=== PATIENT | female | born 1960 | race Caucasian/White ===

== ENCOUNTER 2020-08-02 14:45 | Emergency (ER) | payer BC ==
[2020-08-02] MEDS ORDERED: Sodium Chloride 0.9% 500 ML IV ONE (14:59)
[2020-08-02] MEDS ORDERED: Sodium Chloride 0.9% 1,000 ML IV SCH (15:00)
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
[2020-08-02] MEDS ORDERED: Iopamidol 612 MG/ML 50 ML SDV IVPUSH ONE (15:35)
[2020-08-02] MEDS ORDERED: Iopamidol 612 MG/ML 100 ML Bottle IVPUSH ONE (15:35)
[2020-08-02] MEDS ORDERED: ceFAZolin 1 GM in Premix Bag 1 BAG IV ONE (19:03)
[2020-08-02] MEDS ORDERED: Diphtheria,Pertussis(Acell),Tetanus Vaccine 0.5 ML Syringe IM ONE (19:40)
--- NOTE | 2020-08-03 08:14 | CR ---
Right forearm: 2 views of the right forearm were obtained. Comparison: No previous study. Fracture is identified within the mid one third diaphysis of the right ulna. Slight displacement is seen. No additional fracture or other bony abnormality is appreciated. Impression: 1. Mildly displaced right ulnar diaphyseal fracture. Diagnostic code #3
--- NOTE | 2020-08-03 08:14 | CR ---
Right hand: 4 views of the right hand were obtained. Comparison: No previous study. Slight degenerative change is scattered within the DIP joints. Calcifications are noted off the CMC joint of the thumb as well as DIP joint of the second finger. These appear to be old. There is fairly severe degenerative change being seen within the CMC joint of the thumb. Partially visualized fracture within the ulnar diaphysis is noted. Impression: 1. Degenerative change as noted above. 2. Mid ulnar diaphyseal fracture is partially visualized. 3. Nothing acute is otherwise appreciated on right hand exam. Diagnostic code #3
--- NOTE | 2020-08-03 08:15 | CT ---
CT cervical spine Technique: Multiple axial sections were obtained from above C1 inferiorly to the top of T3. Reconstructed coronal and sagittal images were obtained. Comparison: Prior MRI cervical spine study of 04/22/16. Findings: Slight kyphosis is seen of the cervical spine. Minimal disc space narrowing is noted at C5-6 and C6-7. Anterior osteophytes are noted at these two levels. Slight posterior osteophytes are also noted at C5-6. No bony central or bony neural foraminal stenosis is seen. No abnormal subluxation is appreciated. Minimal degenerative change is noted between the dens and anterior arch of C1. Slight spurring is seen within the uncovertebral joints at C5-6. No acute fracture or subluxation is seen. Impression: 1. Degenerative change as noted above. 2. No acute fracture or subluxation is appreciated. Diagnostic code #2 I agree with preliminary report from [facility], finalized on 08/02/20, 5:10 PM CDT
--- NOTE | 2020-08-03 08:36 | CT ---
Head CT Technique: Multiple axial sections through the brain were obtained. Intravenous contrast was not utilized. Reconstructed coronal and sagittal images were obtained. Comparison: Prior head CT study of 09/11/09. Findings: Focal atrophy is noted within the convexity of the right parietal region which appears to be old. Ventricles along with basal cisterns and sulci over the convexities are within normal limits. No abnormal parenchymal densities are otherwise seen. No evidence of intracranial hemorrhage. No midline shift or mass-effect is seen. Bone window settings were reviewed which show nothing acute within the visualized paranasal sinuses or mastoid sinuses. No acute calvarial finding is appreciated. Impression: 1. Focal atrophy within the convexity of the right parietal region which appears to be old. 2. No acute intracranial abnormality is appreciated. Diagnostic code #2 I agree with preliminary report from [facility], finalized on 08/02/20, 5:08 PM CDT
--- NOTE | 2020-08-03 08:41 | CT ---
CT chest Technique: Multiple axial sections were obtained from above the lung apices inferiorly through the lung bases. Intravenous contrast was utilized. Reconstructed coronal and sagittal images were obtained. Comparison: No prior chest CT is available. Findings: Thoracic aorta shows atherosclerotic calcification. No aneurysm is seen. Small amount of normal mediastinal fluid is noted slightly lateral to the aortic arch. Mediastinum shows small lymph nodes which are believed to be within normal limits. No pericardial thickening is seen. Minimal coronary artery calcification is noted. Lungs show no acute parenchymal change. No pleural effusions or pneumothorax is seen. Bone window settings were reviewed. No discrete acute osseous finding is appreciated. Impression: 1. Nothing acute is appreciated on CT study of the chest. Diagnostic code #1 I agree with preliminary report from [facility], finalized on 08/02/20, 5:[address] abdomen and pelvis Technique: Multiple axial sections were obtained from above the lung apices inferiorly through the lung bases. Intravenous contrast was utilized. No oral contrast has been given. Reconstructed coronal and sagittal images were obtained. Comparison: Prior CT abdomen exam of 04/21/14. Findings: Liver contains no focal parenchymal abnormality. Surgical clips are seen from prior cholecystectomy. Spleen size is normal. Adrenal glands show no nodule. No abnormality is appreciated within the spleen. Kidneys show symmetric contrast enhancement. No hydronephrosis or mass is seen. Hazy mesenteric densities are seen and believed to be chronic. Anterior right-sided abdominal wall hernia is noted. Hernia opening measures about 13 cm. Hernia contents include numerous loops of small bowel and colon. No bowel dilatation is appreciated. Two small fat-containing abdominal hernias are seen more superiorly. Abdominal aorta shows atherosclerotic change without aneurysm. No retroperitoneal adenopathy or mesenteric abnormalities are seen. No pelvic mass or adenopathy is appreciated. Lymph node is noted within the left inguinal region measuring 1.2 cm which is most likely chronic. Delayed images show contrast within the distal ureters and within the bladder. Appendix is not visualized with certainty. Bone window settings were reviewed which show disc space narrowing and vacuum phenomena at L5-S1. No acute osseous finding is appreciated. Impression: 1. Large anterior and right-sided abdominal hernia containing small bowel and colon. No bowel dilatation is seen. 2. Other findings as noted above believed to be incidental. Nothing acute is appreciated. Diagnostic code #3 I agree with preliminary report from [facility], finalized on 08/02/20, 5:35 PM CDT
== END 2020-08-02 20:19 | disposition home or self-care (01) ==
LOC: JD.ED 14:45
DX: S52.201A Unspecified fracture of shaft of right ulna, initial encounter for closed fracture (principal); S00.03XA Contusion of scalp, initial encounter; Z88.5 Allergy status to narcotic agent; Z23 Encounter for immunization; V86.59XA Driver of other special all-terrain or other off-road motor vehicle injured in nontraffic accident, initial encounter
CPT/HCPCS: 29105; 36415; 70450; 71260; 72125; 73090; 73130; 74177; 80053; 81003; 82150; 83690; 85007; 85027; 85610; 85730; 90471; 90715; 96365; 99284; J0690; J7030; Q9967